=== PATIENT | female | born 1980 | race Caucasian/White ===

== ENCOUNTER 2017-11-08 13:36 | Emergency (ER) | payer MEDICAID ==
[~2017-11-08] VITALS: Ht 167.6 cm; Wt 82.0 kg
[2017-11-08 13:51] VITALS: BP 126/89; PULSE 90; RESP 18; TEMP 98.7; O2SAT 97
--- NOTE | 2017-11-08 14:41 | PD ---
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 Patient states it feels like when she has had a yeast infection in the past. States she used over-the- counter Monistat and it temporarily relieved her symptoms but they came right back. She has not been on any antibiotics recently. No history of diabetes. She denies significant vaginal discharge. Denies dysuria, urgency, frequency, fever, chills, nausea, vomiting, abdominal pain, or flank pain. She is in a monogamous relationship but unsure of his fidelity. She denies possibility of as she has an IUD. No chronic medical conditions or daily medications. PFSH Past Medical History ?: Not LMP: IUD IN PLACE Social History Tobacco Use: No Review of Systems Except as stated in HPI: all other systems reviewed are Neg Physical Exam Narrative GENERAL: Well-nourished, well-developed female no acute distress. Afebrile. Ambulatory. SKIN: Focused skin assessment warm/dry. HEAD: Normocephalic. EYES: No scleral icterus. No injection or drainage. NECK: Supple, trachea midline. No JVD or lymphadenopathy. CARDIOVASCULAR: Regular rate and rhythm without murmurs, gallops, or rubs. RESPIRATORY: Breath sounds equal bilaterally. No accessory muscle use. GENITOURINARY: Examined in the presence of a nurse. Normal external genitalia without lesions or erythema. Vaginal vault without blood. There is significant white, cottage cheeselike discharge in the vaginal vault. Cervical os was closed with the same drainage. No cervical motion tenderness. Uterus nontender and nonenlarged. Bilateral adnexa nontender without masses. Data Data Last Documented VS Vital Signs Date Time Temp Pulse Resp B/P (MAP) Pulse Ox O2 Delivery O2 Flow Rate FiO2 11/08/17 13:51 98.7 90 18 126/89 (101) 97 Orders Orders Gc And Chlamydia Pcr (11/08/17 14:29) Wet Prep Profile (11/08/17 14:29) MDM Medical Decision Making Medical Screen Exam Complete: Yes Emergency Medical Condition: Yes Medical Record Reviewed: Yes Differential Diagnosis Vaginitis, yeast infection, STD, UTI Narrative Course 37-year-old female presents to the emergency room for evaluation of itching, burning vagina for the past 2 weeks. States it feels like previous yeast infections. No significant risk factors for yeast infections. She denies any abdominal pain, nausea, vomiting, flank pain, dysuria, urgency, frequency, fever , chills, or significant vaginal discharge. Denies possibility of ; she has an IUD. Physical exam reveals significant cottage cheeselike, white discharge in the vaginal vault and coming from the cervix. Wet prep shows. Patient is in a monogamous relationship and history and physical exam are more consistent with candidiasis and STD; GC and chlamydia ordered and pending but I will not treat empirically at this time. Patient was informed she will be contacted if either comes back positive. She understands and agrees to plan. Diagnosis Primary Impression: Vulvovaginal candidiasis Referrals: Primary Care Physician Additional Instructions: Rest and drink plenty of fluids. Take fluconazole. Repeat in 3 days if symptoms persist. Follow-up with a primary care physician. Return to the emergency room for worsening symptoms. Med/Other Pt SpecificInfo: Prescription(s) given Scripts Fluconazole (Fluconazole) 150 Mg Tab 150 MG PO ONCE for Infection, #2 TAB 0 Refills Prov: You Dickey MD 11/08/17 Disposition: 01 DISCHARGE HOME Condition: Stable Britt Mcnulty November 08, 2017 14:41
[2017-11-08] MEDS ORDERED: FLUC150T PO (14:49)
== END 2017-11-08 15:41 | disposition home or self-care (01) ==
LOC: NEPK 13:36
DX: B37.3 Candidiasis of vulva and vagina (principal)
CPT/HCPCS: 87210; 87491; 87591; 99283

== ENCOUNTER 2017-11-20 13:45 | Emergency (ER) | payer MEDICAID ==
[~2017-11-20] VITALS: Ht 165.1 cm; Wt 82.0 kg
[~2017-11-20 13:45] MED LIST: FLUC150T PO
[2017-11-20 13:54] VITALS: BP 137/84; PULSE 93; RESP 14; TEMP 97.9; O2SAT 96
--- NOTE | 2017-11-20 17:26 | PD ---
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 Patient was seen in the emergency department on 11/08/17 with similar symptoms. She was given Diflucan at that time, but states that her symptoms never really went away. She complains of redness and irritation/pruritus to the external vaginal area with scant discharge. She is sexually active with more than 1 partner and does not always use protection. She has an IUD in place. Chart was reviewed from visit on 11/08/17 and shows a wet prep was negative and gonorrhea and chlamydia were also negative. PFSH Past Medical History ?: Unknown Social History Tobacco Use: No Allergies-Medications (Allergen,Severity, Reaction): Coded Allergies: No Known Allergies (Unverified , 11/20/17) Reported Meds & Prescriptions Reported Meds & Active Scripts Active Clotrimazole 7 Vaginal (Clotrimazole Vaginal) 1% Cream 1 Appl VAGINAL HS Diflucan (Fluconazole) 150 Mg Tab 150 Mg PO ONCE Fluconazole 150 Mg Tab 150 Mg PO ONCE Review of Systems Except as stated in HPI: all other systems reviewed are Neg Physical Exam Narrative GENERAL: Well-developed, well-nourished, awake and alert, no apparent distress. SKIN: Focused skin assessment warm/dry. CARDIOVASCULAR: Regular rate and rhythm. RESPIRATORY: No accessory muscle use. Clear to auscultation. Breath sounds equal bilaterally. GASTROINTESTINAL: Abdomen soft, non-tender, nondistended. 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 Slight erythema to labia majora and labia minora with ulcerative lesions. There is a moderate amount of whitish/ydi-odbm-zeawinmp/yeast appearing vaginal discharge. Normal- appearing cervix. MUSCULOSKELETAL: No obvious deformities. No clubbing. No cyanosis. No edema. NEUROLOGICAL: Awake and alert. No obvious cranial nerve deficits. Motor grossly within normal limits. Normal speech. PSYCHIATRIC: Appropriate mood and affect; insight and judgment normal. Data Data Last Documented VS Vital Signs Date Time Temp Pulse Resp B/P (MAP) Pulse Ox O2 Delivery O2 Flow Rate FiO2 11/20/17 13:54 97.9 93 14 137/84 (101) 96 Orders Orders Gc And Chlamydia Pcr (11/20/17 17:18) Wet Prep Profile (11/20/17 17:18) Urinalysis - C+S If Indicated (11/20/17 17:18) Ed Urine Pregnancytest Poc (11/20/17 17:18) Fluconazole (Diflucan) (11/20/17 18:00) Ed Discharge Order (11/20/17 18:49) Labs Laboratory Tests Test 11/20/17 17:30 11/20/17 17:42 Urine Color YELLOW Urine Turbidity CLOUDY Urine pH 6.5 Urine Specific [place] 1.012 Urine Protein NEG mg/dL Urine Glucose (UA) NEG mg/dL Urine Ketones NEG mg/dL Urine Occult Blood TRACE Urine Nitrite NEG Urine Bilirubin NEG Urine Urobilinogen 0.2 MG/DL Urine Leukocyte Esterase LARGE Urine RBC 17 /hpf Urine WBC 3 /hpf Urine Squamous Epithelial Cells 27 /hpf Urine Amorphous Sediment RARE Urine Bacteria FEW /hpf Urine Mucus FEW /lpf Microscopic Urinalysis Comment CULT NOT INDICATED Clue Cells (Wet Prep) NONE SEEN Vaginal Trichomonas (Wet Prep) NONE SEEN Vaginal Yeast (Wet Prep) PRESENT Chlamydia trachomatis DNA (PCR) NOT DETECTED Neisseria gonorrhoeae DNA (PCR) NOT DETECTED MDM Medical Decision Making Medical Screen Exam Complete: Yes Emergency Medical Condition: Yes Differential Diagnosis Vulvovaginal candidiasis, STI, genital herpes, cellulitis, folliculitis Narrative Course Blood prep is positive for yeast. Patient was given a dose of Diflucan here and will be given a prescription for another dose to take in 72 hours. I will also give her a prescription for clotrimazole. 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 She was advised when to return to the emergency department. She verbalizes understanding and agreement with plan. Diagnosis Primary Impression: Vulvovaginal candidiasis Referrals: [facility] 3 days Additional Instructions: Follow-up with an DIRECTIONAL SURVEY DRAFTER physician this week. Return to the emergency department for worsening symptoms or any other concerns. Scripts Clotrimazole Vaginal (Clotrimazole 7 Vaginal) 1% Cream 1 APPL VAGINAL HS for Fungal Infection, #45 GM 0 Refills Prov: Raji Bragg MD 11/20/17 Fluconazole (Diflucan) 150 Mg Tab 150 MG PO ONCE for Infection, #1 TAB 0 Refills Prov: Raji Bragg MD 11/20/17 Disposition: 01 DISCHARGE HOME Condition: Stable Raji Bragg MD November 20, 2017 17:26
[2017-11-20] MEDS ORDERED: FLUCONAZOLE 100 MG TAB PO ONE (18:00)
[2017-11-20 18:09] LABS: BILIRUBIN, URINE NEG (NEG); GLUCOSE,URINE NEG (NEG); KETONE, URINE NEG (NEG); NITRITE,URINE NEG (NEG); PH, URINE 6.5 (5.0-8.5); URINE COLOR YELLOW (YELLW/STRAW); URINE LEUKOCYTE ESTERASE LARGE (NEG)
[2017-11-20 18:15] LABS: BLOOD, URINE TRACE (NEG)
[2017-11-20 18:17] LABS: AMORPHOUS SEDIMENT, URINE RARE; BACTERIA, URINE FEW /hpf; MUCUS URINE FEW /lpf (OCC); SQUAMOUS EPITHELIAL CELL URINE 27 /hpf (0-5)
[2017-11-20] MEDS ORDERED: DIFL150T PO (18:49)
[2017-11-20] MEDS ORDERED: CLOT1CRE23 VAGINAL (18:49)
== END 2017-11-20 19:55 | disposition home or self-care (01) ==
LOC: NEPD 13:45
DX: B37.3 Candidiasis of vulva and vagina (principal)
CPT/HCPCS: 81001; 84703; 87210; 87491; 87591; 99284